=== PATIENT | female | born 1965 | race Caucasian/White ===

== ENCOUNTER → 2019-09-27 | Outpatient (CLI) | payer BC | LOC: M LAB 07:40 | PROVIDERS: ATTEND Nurse Practitioner Women's Health | DX: R73.03 Prediabetes (principal) ==

== ENCOUNTER → 2020-03-31 | Outpatient (REF) | payer BC | LOC: M LAB REF 18:01 | PROVIDERS: ATTEND Dermatology | DX: D21.0 Benign neoplasm of connective and other soft tissue of head, face and neck (principal) ==

== ENCOUNTER → 2020-04-10 | Outpatient (REF) | payer BC ==
[2020-04-10 13:45] LABS: HEMATOCRIT 44.3 % (36.0-47.0); HEMOGLOBIN 14.1 g/dl (12.0-15.5); MEAN CORPUSCULAR HEMOGLOBIN 29.7 pg (27.0-33.0); MEAN CORPUSCULAR HGB CONC 31.8 g/dl (32.0-36.5); MEAN CORPUSCULAR VOLUME 93.3 fl (80.0-96.0); PLATELET COUNT, AUTOMATED 361 10^3/uL (150-450); RED BLOOD COUNT 4.75 10^6/uL (4.00-5.40); WHITE BLOOD COUNT 6.8 10^3/uL (4.0-10.0)
[2020-04-10 15:14] LABS: ALBUMIN 3.9 GM/DL (3.2-5.2); ALT/SGPT 36 U/L (12-78); BILIRUBIN,TOTAL 0.3 MG/DL (0.2-1.0); BLOOD UREA NITROGEN 15 MG/DL (7-18); CALCIUM LEVEL 10.2 MG/DL (8.5-10.1); CARBON DIOXIDE LEVEL 27 MEQ/L (21-32); CHLORIDE LEVEL 107 MEQ/L (98-107); CHOLESTEROL LEVEL 173 MG/DL (<200); CHOLESTEROL RISK RATIO 4.325 (<5); CREATININE FOR GFR 0.97 MG/DL (0.55-1.30); GLOMERULAR FILTRATION RATE > 60.0 (>51); GLUCOSE, FASTING 99 MG/DL (70-100); HDL CHOLESTEROL 40 MG/DL (>40); LDL CHOLESTEROL 108 MG/DL (<100); NON-HDL-C 133 MG/DL; POTASSIUM SERUM 4.6 MEQ/L (3.5-5.1); SODIUM LEVEL 139 MEQ/L (136-145); TOTAL 25(OH) VITAMIN D 20.9 NG/ML (30.0-100.0); TOTAL PROTEIN 7.5 GM/DL (6.4-8.2); TRIGLYCERIDES LEVEL 123 MG/DL (<150)
[2020-04-10 18:36] LABS: HEMOGLOBIN A1c 5.6 %
== END ==
LOC: M SFHCPLAZ 10:40
PROVIDERS: ATTEND Nurse Practitioner Adult Health
DX: Z00.00 Encounter for general adult medical examination without abnormal findings (principal); Z13.220 Encounter for screening for lipoid disorders; Z68.41 Body mass index [BMI] 40.0-44.9, adult; E55.9 Vitamin D deficiency, unspecified

== ENCOUNTER → 2020-05-18 | Outpatient (CLI) | payer BC ==
[~2020-05-18] MED LIST: GASTROGRAFIN SOLUTION 30ML (Q9963) ONE; ISOVUE-370 76% 100ML VIAL ONE
--- NOTE | 2020-06-29 09:17 | REP ---
CT OF THE ABDOMEN AND PELVIS WITH IV AND ORAL CONTRAST: HISTORY: Malignant neoplasm of the endometrium. COMPARISON: None. FINDINGS: Preliminary supervisor boatbuilders wood view is noncontributory. The liver is normal in size, homogeneous in texture. No splenic abnormality is observed. Normal adrenal glands are seen. No abnormality is noted in the pancreas or the gallbladder. No retroperitoneal mass or adenopathy is seen. The kidneys enhance symmetrically and are morphologically intact. Vascular calcification is noted in a normal caliber aorta. A normal appendix is seen in the right lower quadrant. No iliac or pelvic mass or adenopathy is seen. There is an IUD noted in place in the uterus. The uterus tips to the right. No adnexal mass is seen. The urinary bladder is intact. No abdominal wall defect is seen. The small and large bowel loops are unremarkable. Bone window settings show no bony destructive lesion. IMPRESSION: No evidence of mass or adenopathy. IUD noted in place in the uterus. MTDD
--- NOTE | 2020-06-29 09:18 | REP ---
CT OF THE CHEST WITH IV CONTRAST: HISTORY: Malignant neoplasm of the endometrium. COMPARISON: None. CONTRAST DOSE: 100 ml of intravenous Isovue 370 FINDINGS: Preliminary digital football scout view of the chest is unremarkable. The lungs are symmetrically aerated and free of infiltrate or pulmonary nodule. No mass lesion is seen. No pleural or pericardial effusion is observed. No hilar or mediastinal adenopathy is seen. No pulmonary arterial or mediastinal vascular abnormality is observed. The thyroid lobes appear normal and symmetric. No axillary adenopathy is seen. Normal adrenal glands are seen bilaterally. The visualized upper abdominal structures are unremarkable. On bone window settings, no bony destructive lesion is seen. IMPRESSION: No active cardiopulmonary disease. MTDD
== END ==
LOC: M RAD 14:28
PROVIDERS: ATTEND Nurse Practitioner Women's Health
DX: C54.1 Malignant neoplasm of endometrium (principal)
CPT/HCPCS: 71260; 74177; Q9963; Q9967

== ENCOUNTER → 2020-07-17 | Outpatient (REF) | payer BC ==
[2020-07-17 16:11] LABS: ALBUMIN 3.6 GM/DL (3.2-5.2); ALT/SGPT 25 U/L (12-78); BILIRUBIN,TOTAL 0.5 MG/DL (0.2-1.0); BLOOD UREA NITROGEN 14 MG/DL (7-18); CALCIUM LEVEL 9.4 MG/DL (8.5-10.1); CARBON DIOXIDE LEVEL 30 MEQ/L (21-32); CHLORIDE LEVEL 106 MEQ/L (98-107); CREATININE FOR GFR 0.92 MG/DL (0.55-1.30); GLOMERULAR FILTRATION RATE > 60.0 (>51); GLUCOSE, FASTING 81 MG/DL (70-100); PHOSPHORUS LEVEL 3.2 MG/DL (2.5-4.9); POTASSIUM SERUM 4.3 MEQ/L (3.5-5.1); SODIUM LEVEL 142 MEQ/L (136-145); TOTAL PROTEIN 7.3 GM/DL (6.4-8.2)
== END ==
LOC: M SFHCPLAZ 14:01
PROVIDERS: ATTEND Nurse Practitioner Adult Health
DX: E83.52 Hypercalcemia (principal)

== ENCOUNTER → 2020-08-18 | Outpatient (REF) | payer BC | LOC: M LAB REF 17:09 | PROVIDERS: ATTEND Dermatology | DX: L72.0 Epidermal cyst (principal) ==

== ENCOUNTER → 2020-08-21 | Outpatient (CLI) | payer BC ==
--- NOTE | 2020-08-22 05:18 | REP ---
INDICATION: ESSENTIAL HTN COMPARISON: None TECHNIQUE: Real time díaz scale ultrasound examination using curved array transducer followed by color Doppler evaluation of the renal vasculature. FINDINGS: The bilateral kidneys demonstrate normal contour, size, echogenicity, and reniform shape without hydronephrosis or obvious abnormality. Right kidney measures 10.4 x 5.3 x 4.8 cm. Left kidney measures 11.3 x 5.0 x 4.6 cm. Bladder is under distended. Incidental gallstones noted. Color Doppler evaluation demonstrates normal renal arterial wave patterns. Peak aortic velocity: 75.5 centimeters/second RIGHT KIDNEY Renal arterial velocity: 127.7 centimeters/second Renal-aortic ratio: 1.7 Intrarenal resistive indices: 0.58-0.76 Intrarenal acceleration times: 0.04-0.045 LEFT KIDNEY Renal arterial velocity: 151.5 centimeters/second Renal-aortic ratio: 2.0 Intrarenal resistive indices: 0.55-0.72 Intrarenal acceleration times: 0.04-0.05 IMPRESSION: 1. Kidneys appear normal. 2. Doppler interrogation without sonographic evidence for renal arterial stenosis. 3. Gallstones. <Electronically signed by Josh Vergara > 08/22/20 0514
== END ==
LOC: M RAD 09:43
PROVIDERS: ATTEND Nurse Practitioner Adult Health
DX: I10 Essential (primary) hypertension (principal); K80.20 Calculus of gallbladder without cholecystitis without obstruction

== ENCOUNTER → 2020-10-18 | Outpatient (CLI) | payer BC ==
[~2020-10-18] MED LIST changes: +COLLAGEN PO; +D400400C PO; -GASTROGRAFIN SOLUTION 30ML (Q9963) ONE; -ISOVUE-370 76% 100ML VIAL ONE; +VALS40TA9 PO
== END ==
LOC: M LABSMTC 09:45
PROVIDERS: ATTEND Anesthesiology
DX: Z01.812 Encounter for preprocedural laboratory examination (principal); Z20.828 Contact with and (suspected) exposure to other viral communicable diseases

== ENCOUNTER 2020-10-23 07:37 | Day surgery (SDC) | payer BC ==
[~2020-10-23] VITALS: Ht 162.6 cm; Wt 107.0 kg
[~2020-10-23 07:37] MED LIST changes: +NS 1,000 ML IV ONE
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
--- OUTSIDE RECORDS SUMMARY | 2020-10-23 07:42 | CCD ---
Author Author [facility] Organization [facility] Address Unknown Phone Unavailable Care Team Providers Care Spot Facer Name Role Phone Myron Wynn APPLICATIONS ENGINEERING MANAGER, CNM Unavailable Unavailable WynnMyron philip APPLICATIONS ENGINEERING MANAGER, CNM Unavailable Unavailable Myron Wynn APPLICATIONS ENGINEERING MANAGER, CNM Unavailable Unavailable WynnMyron philip APPLICATIONS ENGINEERING MANAGER, CNM Unavailable Unavailable Myron Wynn APPLICATIONS ENGINEERING MANAGER, CNM Unavailable Unavailable WynnMyron philip APPLICATIONS ENGINEERING MANAGER, CNM Unavailable Unavailable Myron Wynn APPLICATIONS ENGINEERING MANAGER, CNM Unavailable Unavailable Myron Wynn APPLICATIONS ENGINEERING MANAGER, CNM Unavailable Unavailable WynnMyron philip APPLICATIONS ENGINEERING MANAGER, CNM Unavailable Unavailable Myron Wynn APPLICATIONS ENGINEERING MANAGER, CNM Unavailable Unavailable Myron Wynn APPLICATIONS ENGINEERING MANAGER, CNM Unavailable Unavailable Myron Wynn APPLICATIONS ENGINEERING MANAGER, CNM Unavailable Unavailable Myron Wynn APPLICATIONS ENGINEERING MANAGER, CNM Unavailable Unavailable Myron Wynn APPLICATIONS ENGINEERING MANAGER, CNM Unavailable Unavailable Myron Wynn APPLICATIONS ENGINEERING MANAGER, CNM Unavailable Unavailable Myron Wynn APPLICATIONS ENGINEERING MANAGER, CNM Unavailable Unavailable Myron Wynn APPLICATIONS ENGINEERING MANAGER, CNM Unavailable Unavailable Myron Wynn APPLICATIONS ENGINEERING MANAGER, CNM Unavailable Unavailable Myron Wynn APPLICATIONS ENGINEERING MANAGER, CNM Unavailable Unavailable Myron Wynn APPLICATIONS ENGINEERING MANAGER, CNM Unavailable Unavailable Myron Wynn APPLICATIONS ENGINEERING MANAGER, CNM Unavailable Unavailable Myron Wynn APPLICATIONS ENGINEERING MANAGER, CNM Unavailable Unavailable Wynn, M Angela APPLICATIONS ENGINEERING MANAGER, CNM Unavailable Unavailable Wynn, M Angela APPLICATIONS ENGINEERING MANAGER, CNM Unavailable Unavailable Wynn, M Angela APPLICATIONS ENGINEERING MANAGER, CNM Unavailable Unavailable Wynn, M Angela APPLICATIONS ENGINEERING MANAGER, CNM Unavailable Unavailable Wynn, M Angela APPLICATIONS ENGINEERING MANAGER, CNM Unavailable Unavailable Wynn, M Angela APPLICATIONS ENGINEERING MANAGER, CNM Unavailable Unavailable Wynn, M Angela APPLICATIONS ENGINEERING MANAGER, CNM Unavailable Unavailable Wynn, M Angela APPLICATIONS ENGINEERING MANAGER, CNM Unavailable Unavailable Wynn, M Angela APPLICATIONS ENGINEERING MANAGER, CNM Unavailable Unavailable Wynn, M Angela APPLICATIONS ENGINEERING MANAGER, CNM Unavailable Unavailable Wynn, M Angela APPLICATIONS ENGINEERING MANAGER, CNM Unavailable Unavailable Re-disclosure Warning The records that you are about to access may contain information from federally-assisted alcohol or drug abuse programs. If such information is present, then the following federally mandated warning applies: This information has been disclosed to you from records protected by federal confidentiality rules (42 CFR part 2). The federal rules prohibit you from making any further disclosure of this information unless further disclosure is expressly permitted by the written consent of the person to whom it pertains or as otherwise permitted by 42 CFR part 2. A general authorization for the release of medical or other information is NOT sufficient for this purpose. The Federal rules restrict any use of the information to criminally investigate or prosecute any alcohol or drug abuse patient.The records that you are about to access may contain highly sensitive health information, the redisclosure of which is protected by Article 27-F of the [facility] Public Health law. If you continue you may have access to information: Regarding HIV / AIDS; Provided by facilities licensed or operated by the [facility] Office of Mental Health; or Provided by the [facility] Office for People With Developmental Disabilities. If such information is present, then the following [facility] mandated warning applies: This information has been disclosed to you from confidential records which are protected by state law. State law prohibits you from making any further disclosure of this information without the specific written consent of the person to whom it pertains, or as otherwise permitted by law. Any unauthorized further disclosure in violation of state law may result in a fine or penitentiary sentence or both. A general authorization for the release of medical or other information is NOT sufficient authorization for further disc losure. Family History Family Member Name Family Member Gender Family Member Status Date o f Status Description Data Source(s) Unknown Unknown Encounters Encounter Providers Location Date Indications Data Source(s ) Unknown [address] [facility] [place] [address] 09/19/2020 12:00:00 AM EST eCW1 ([facility]) Outpatient [address] [facility] [place] [address] 08/24/2020 12:00:00 AM EST eCW1 ([facility]) Outpatient [address] [facility] [place] [address] 08/18/2020 12:00:00 AM EST eCW1 ([facility]) Outpatient [address] [facility] [place] [address] 08/07/2020 12:00:00 AM EST eCW1 ([facility]) Unknown [address] [facility] [place] [address] 08/07/2020 12:00:00 AM EST eCW1 ([facility]) Outpatient [address] [facility] [place] [address] 07/17/2020 12:00:00 AM EDT eCW1 ([facility]) Outpatient Referrer: Angela Wynn NP, CNM 09/21/2019 07:32 :00 AM EST [facility] Outpatient Referrer: Angela Wynn NP, CNM 09/21/2019 07:31 :00 AM EST [facility] Outpatient Referrer: Angela Wynn NP, CNM 09/21/2019 07:31 :00 AM EST [facility] Outpatient Referrer: Angela Wynn NP, CNM 09/21/2019 07:26 :00 AM EST [facility] Outpatient Referrer: Angela Wynn NP, CNM 09/14/2019 10:44 :00 AM EST [facility] Outpatient 09/14/2019 10:39:00 AM EST [facility] Outpatient 09/14/2019 10:39:00 AM EST [facility] Immunizations Vaccine Date Status Description Data Source(s) influenza, recombinant, quadrIvalent,injectable, prese rvative free 07/17/2020 01:38:00 PM EDT completed eCW1 ([facility]) influenza, recombinant, quadrIvalent,injectable, prese rvative free 07/17/2020 01:38:00 PM EDT completed eCW1 ([facility]) influenza, recombinant, quadrIvalent,injectable, prese rvative free 07/17/2020 01:38:00 PM EDT completed eCW1 ([facility]) influenza, recombinant, quadrIvalent,injectable, prese rvative free 07/17/2020 01:38:00 PM EDT completed eCW1 ([facility]) influenza, recombinant, quadrIvalent,injectable, prese rvative free 07/17/2020 01:38:00 PM EDT completed eCW1 ([facility]) influenza, recombinant, quadrIvalent,injectable, prese rvative free 07/17/2020 01:38:00 PM EDT completed eCW1 ([facility]) Medications Medication Brand Name Start Date Product Form Dose Route Admi nistrative Instructions Pharmacy Instructions Status Indications Reaction Description Data Source(s) Naltrexone hydrochloride 50 MG Oral Tablet NALTREXONE HCL 08/29/2020 12:00:00 AM EST tablet 90 TAKE ONE TABLET BY MOUTH DANGELO TAKE ONE TABLET BY MOUTH EVERY DAY SOLD: 08/29/2020 [facility] 24 HR Bupropion Hydrochloride 150 MG Extended Release Oral T ablet BUPROPION HCL 08/29/2020 12:00:00 AM EST tablet extended release 24 hr 90 TAKE ONE TABLET BY MOUTH EVERY MORNING TAKE ONE TABLET BY MOUTH EVERY MORNING SOLD: 08/29/2020 [facility] Naltrexone hydrochloride 50 MG Oral Tablet Naltrexone HCl 50 MG Naltrexone HCl 50 MG 08/28/2020 12:00:00 AM EST 1.0 {tablet} activ e Naltrexone HCl 50 MG eCW1 ([facility]) 24 HR Bupropion Hydrochloride 150 MG Ext ended Release Oral Tablet [Wellbutrin] Wellbutrin XL 150 MG Wellbutrin XL 150 MG 08/28/2020 12:00:00 AM EST 1.0 {tablet_in_the_morning} active Wellbutr in XL 150 MG eCW1 ([facility]) 24 HR Bupropion Hydrochloride 150 MG Ext ended Release Oral Tablet [Wellbutrin] Wellbutrin XL 150 MG Wellbutrin XL 150 MG 08/28/2020 12:00:00 AM EST 1.0 {tablet_in_the_morning} active Wellbutr in XL 150 MG eCW1 ([facility]) Naltrexone hydrochloride 50 MG Oral Tablet Naltrexone HCl 50 MG Naltrexone HCl 50 MG 08/28/2020 12:00:00 AM EST 1.0 {tablet} activ e Naltrexone HCl 50 MG eCW1 ([facility]) valsartan 40 MG Oral Tablet Valsartan 40 MG Valsartan 40 MG 08/07/2020 12:00:00 AM EST 1.0 {tablet} active Valsartan 4 0 MG eCW1 ([facility]) valsartan 40 MG Oral Tablet Valsartan 40 MG Valsartan 40 MG 08/07/2020 12:00:00 AM EST 1.0 {tablet} active Valsartan 4 0 MG eCW1 ([facility]) valsartan 40 MG Oral Tablet Valsartan 40 MG Valsartan 40 MG 08/07/2020 12:00:00 AM EST 1.0 {tablet} active Valsartan 4 0 MG eCW1 ([facility]) Bisacodyl 5 MG Delayed Release Oral Tablet [Dulcolax] Dulcol ax 07/10/2020 12:00:00 AM EDT ORAL active M EDENT ([facility], ) 17.5-3.13-1.6 gram 07/10/2020 12:00:00 AM EDT recon soln 354 TAKE DIRECTED TAKE DIRECTED SOLD: 07/12/2020 [facility] Suprep Bowel Prep Kit Suprep Bowel Prep Kit 07/10/2020 12:00:00 AM EDT active MEDENT ([facility], ) Insurance Providers Payer name Policy type / Coverage type Policy ID Covered alliance party ID Covered alliance party's relationship to smith Policy Smith Plan Information [employer] [place]/307 [id number] SP [id number] [employer] BCBS B [id number] S [id number] [place] [place] P[place] 302/[id number] [employer] BCBS B [id number] P [id number] BCBS of [facility] Other 0 Family Depend ent Latrell Cough 0 BCBS of [facility] Other 0 Family Depend ent Latrell Cough 0 BCBS of [facility] Other 0 Family Depend ent Latrell Cough 0 BS/PP0/Prefix W/#'S&LTR Commercial Family Dependen t Problems, Conditions, and Diagnoses Code Display Name Description Problem Type Effective Dates Data Source(s) I10 [id number] Essential hypertension Problem 08/07/2020 12 :00:00 AM EST eCW1 ([facility]) Z68.38 [id number] BMI 38.0-38.9,adult Problem 07/17/2020 12:00 :00 AM EDT eCW1 ([facility]) Z68.41 [id number] Body mass index (BMI) of 40.1 to 44.9 in adult Problem 04/10/2020 12:00:00 AM EDT eCW1 ([facility]) C55 [id number] Malignant neoplasm of uterus, unspecified site Problem 04/10/2020 12:00:00 AM EDT eCW1 ([facility]) I10 [id number] Elevated blood press ure reading in office with white coat syndrome, with diagnosis of hypertension Problem 04/10/2020 12:00:00 AM EDT e CW1 ([facility]) E83.52 04736589 Serum calcium elevated Problem 04/10/2020 12 :00:00 AM EDT eCW1 ([facility]) E55.9 [id number] Vitamin D deficiency, unspecified Problem 04/10/2020 12:00:00 AM EDT eCW1 ([facility]) Surgeries/Procedures Procedure Description Date Indications Data Source(s) Suture Removal 08/24/2020 12:00:00 AM EST eCW1 ([facility]) Immunization: Flublok Quadrivalent (18 years & older) 0.5mL IM (Influenza) 07/17/2020 12:00:00 AM EDT eCW1 ([facility]) Results ID Date Data Source [id number] 10/18/2020 10:00:00 AM EST [facility] Name Value Range Interpretation Code Description Data Clarissa rce(s) Supporting Document(s) SARS coronavirus 2 RNA Not Detected [facility] [place] This lab was ordered by [facility] and reported by [facility]. ID Date Data Source [id number] 10/09/2020 12:00:00 AM EST [facility] Diana Biswas Cnm Patient Name: ELIGHANN HUITRON[address] [facility] Date of : 1965[place] [address] Date of Exam: 10/09/2020#: Fax: [phone] EXAM: MAMMO SCREENING WITH CADCLINICAL INFORMATION: Screening.Based on the personal and family history information your patient suppliedat the time of imaging, her lifetime risk of breast cancer estimated by theTyrer-Cuzick model is 6.6%. Given that this patient has less than 20% TCrisk score, no further medical management is currently recommended at thistime.Your patient's personal and/or family history of cancer submitted at thetime of imaging is suggestive of a hereditary cancer syndrome. She meetsthe criteria for genetic testing established by [facility] and [employer] guidelines. She should pursue arisk assessment with a hereditary cancer specialist which may includetesting based on these criteria. The benefits and limitations of genetictesting would be discussed, including potential changes to medicalmanagement based on the results. [facility].Digital screening (2D) mammography was performed bilaterally in the CC andMLO projections. Additionally, breast tomosynthesis (3D mammography) wasperformed bilaterally in the CC and MLO projections. Today's exam wascompared to the prior exam(s).By history, the patient has no complaints of a palpable breast abnormalityor other significant breast complaints.The patient states last clinical breast exam was in September of 2020.The breasts are unchanged in size and shape. There are no cheyanne-soft tissuedensities or sp iculated masses. There is no internal architecturaldistortion. There are no suspicious cheyanne-calcific clusters. Skinthickening or nipple retraction is not present. Stable benigncalcifications are again seen bilaterally.The Volpara volumetric breast density category is B, there are scatteredareas of fibroglandular density.IMPRESSION:BI-RADS Category 2 - Benign Finding(s). Stable mammogram. There is noevidence of malignant alteration of the breasts. Followup examinationrecommended in one year.This mammogram was read with the assistance of [employer], an FDAapproved computer aided detection system for mammography.Negative x-ray reports should not delay surgical consultation if a dominantor clinically suspicious mass is present.Not all breast cancers can be identified by mammography. Therefore, werecommend that you continue to perform regular breast self-examination andphysical examination and then promptly contact your physician of anyconcerns or changes.Adenosis and dense breasts may obscure an underlying neoplasm.ANUSHA Felipe/Yaneth you for referring LEIGHANN HUITRON to our office. Electronically Signed - NIKKY MORRIS DO 10/10/20 13:21 Name Value Range Interpretation Code Description Data Clarissa rce(s) Supporting Document(s) ID Date Data Source [id number] 05/23/2020 04:32:00 PM EDT [facility] Name Value Range Interpretation Code Description Data Clarissa rce(s) Supporting Document(s) SARS coronavirus 2 RNA panel N [facility] This lab was ordered by [facility] and reported by [facility]. ID Date Data Source [id number] 09/21/2019 12:00:00 AM EST [facility] Angela [facility] Patient Name: LEIGHANN MILLER [address] [facility] Date of : 1965[place] [address] Date of Exam: 09/21/2019#: Fax: [phone] EXAM: MAMMO SCREENING WITH CADCLINICAL INFORMATION: Screening.Based on the personal and family history information your patient suppliedat the time of imaging, her lifetime risk of breast cancer estimated by theTyrer-Cuzick model is 7.6%. Given that this patient has less than 20% TCrisk score, no further medical management is currently recommended at thistime.Although the patient is 54-years of age she states that she has never had amammogram and today is the initial screening exam.Digital screening (2D) mammography was performed bilaterally. Additionally,breast tomosynthesis (3D) mammography was performed bilaterally in the CCand MLO projections.Today's examination is the initial screening examination.By history, the patient has no complaints of a palpable breast abnormalityor other significant breast complaints.The patient states last clinical breast exam was 09/2019.The breasts are symmetric in size and shape. There are no masses. Thereis no internal architectural distortion. There are no suspiciousmicrocalcific clusters. Skin thickening or nipple retraction is notpresent.The Volpara volumetric breast density category is A, the breasts are almostentirely fatty.IMPRESSION:BI-RADS Category 2 - Benign Finding(s). There is no evidence of malignantalteration of the breasts. Followup examination recommended in one year.This mammogram was read with the assistance of [employer], an FDAapproved computer aided detection system for mamm ography.Negative x-ray reports should not delay surgical consultation if a dominantor clinically suspicious mass is present.Not all breast cancers can be identified by mammography. Therefore, werecommend that you continue to perform regular breast self-examination andphysical examination and then promptly contact your physician of anyconcerns or changes.Adenosis and dense breasts may obscure an underlying neoplasm.ANUSHA Felipe/Devik you for referring LEIGHANN MILLER to our office. Electronically Signed - NIKKY MORRIS DO 09/21/19 16:32 Name Value Range Interpretation Code Description Data Clarissa rce(s) Supporting Document(s) ID Date Data Source [id number] 09/21/2019 12:00:00 AM EST [facility] Angela Wynn Cn Patient Name: LEIGHANN MILLER [address] [facility] Date of : 1965[place] [address] Date of Exam: 09/21/2019PH#: Fax: [phone] EXAM: US PELVIC COMPLETECLINICAL INFORMATION: Post menopausal bleeding.Transvesical and transvaginal imaging was obtained.There are no prior pelvic ultrasounds for comparison.The uterus measures 8.7 x 4.1 x 5.9 cm. The parenchymal echo pattern iswithin normal limits. The endometrial echocomplex is abnormally thickenedand heterogeneous measuring 2 cm in its greatest thickness.Neither ovary was visualized transvesically or transvaginally.The urinary bladder measures 4 x 5 x 7 cm.IMPRESSION:Abnormally thickened heterogeneous endometrial echocomplex as describedabove.Accredited by the [employer] in GynecologicalUltrasound.ANUSHA Felipe/antoinettecTaruna maloney for referring LEIGHANN MILLER to our office. Electronically Signed - NIKKY MORRIS DO 09/21/19 16:35 Name Value Range Interpretation Code Description Data Clarissa rce(s) Supporting Document(s) ID Date Data Source [id number] 09/21/2019 12:00:00 AM EST [facility] Name: LEIGHANN MILLER [address] [facility] Date of : 1965[place], [place] [address] Date of Exam: 09/21/2019#: Fax: [phone] EXAM: US PELVIC COMPLETECLINICAL INFORMATION: Post menopausal bleeding.Transvesical and transvaginal imaging was obtained.There are no prior pelvic ultrasounds for comparison.The uterus measures 8.7 x 4.1 x 5.9 cm. The parenchymal echo pattern iswithin normal limits. The endometrial echocomplex is abnormally thickenedand heterogeneous measuring 2 cm in its greatest thickness.Neither ovary was visualized transvesically or transvaginally.The urinary bladder measures 4 x 5 x 7 cm.IMPRESSION:Abnormally thickened heterogeneous endometrial echocomplex as describedabove.Accredited by the [employer] in GynecologicalUltrasound.ANUSHA Felipe/Yaneth you for referring LEIGHANN MILLER to our office. Electronically Signed - NIKKY MORRIS DO 09/21/19 16:35 Name Value Range Interpretation Code Description Data Clarissa rce(s) Supporting Document(s) Procedure Social History Code Duration Value Status Description Data Source(s ) Smoking 08/28/2020 12:00:00 AM EST Former Smoker completed Former Smoker eCW1 ([facility]) Smoking 08/28/2020 12:00:00 AM EST Former Smoker completed Former Smoker eCW1 ([facility]) Smoking 08/25/2020 12:00:00 AM EST Former Smoker completed Former Smoker eCW1 ([facility]) Smoking 08/07/2020 12:00:00 AM EST Former Smoker completed Former Smoker eCW1 ([facility]) Smoking 08/07/2020 12:00:00 AM EST Former Smoker completed Former Smoker eCW1 ([facility]) Smoking 07/17/2020 12:00:00 AM EDT Former Smoker completed Former Smoker eCW1 ([facility]) Vital Signs ID Date Data Source UNK Name Value Range Interpretation Code Description Data Source(s) Body mass index (BMI) [Ratio] 38.41 kg/m2 38.41 kg/m2 W1 ([facility]) Body height 66 [in_i] 66 [in_i] [facility]CW[facility] Body weight 238 [lb_av] 238 [lb_av] eCW1 ([facility]) Diastolic blood pressure 96 mm[Hg] 96 mm[Hg] eCW1 ([facility]) Systolic blood pressure 160 mm[Hg] 160 mm[Hg] e CW1 ([facility]) Body temperature 98 [degF] 98 [degF] eCW1 ([facility]) Respiratory rate 18 /min 18 /min eCW1 ([facility]) Heart rate 90 /min 90 /min eCW1 ([facility]) Body mass index (BMI) [Ratio] 38.57 kg/m2 38.57 kg/m2 eCW1 ([facility]) Body height 66 [in_i] 66 [in_i] eCW1 ([facility]) Body weight 239 [lb_av] 239 [lb_av] eCW1 ([facility]) Diastolic blood pressure 88 mm[Hg] 88 mm[Hg] eCW1 ([facility]) Systolic blood pressure 150 mm[Hg] 150 mm[Hg] e CW1 ([facility]) Body temperature 98.2 [degF] 98.2 [degF] eCW1 ( [facility]) Respiratory rate 18 /min 18 /min eCW1 ([facility]) Heart rate 90 /min 90 /min eCW1 ([facility]) Body mass index (BMI) [Ratio] 38.57 kg/m2 38.57 kg/m2 eCW1 ([facility]) Body height 66 [in_i] 66 [in_i] eCW1 ([facility] Body weight 239 [lb_av] 239 [lb_av] eCW1 ([facility]) Body weight 108.410 kg 108.410 kg MEDENT ([facility], ) [place] body weight 125 [lb_av] 125 [lb_av] MEDEN T ([facility], ) Body mass index (BMI) [Ratio] 39.8 kg/m2 39.8 k g/m2 [facility] ([facility]) Body weight 239.00 [lb_av] 239.00 [lb_av] MEDEN T ([facility], ) Body height 65 [in_i] 65 [in_i] MEDENT ([facility]) 5'5" Diastolic blood pressure 84 mm[Hg] 84 mm[Hg] [facility] ([facility]) Systolic blood pressure 122 mm[Hg] 122 mm[Hg] M EDENT ([facility], ) Patient Treatment Plan of Care Planned Activity Planned Date Details Description Data Source (s) 24 HR Bupropion Hydrochloride 150 MG Extended Release Oral Tablet [Wellbutrin] 08/28/2020 12:00:00 AM EST eCW1 ([facility] Naltrexone hydrochloride 50 MG Oral Tablet 08/28/2020 12:00:[address] eCW1 ([facility]) 24 HR Bupropion Hydrochloride 150 MG Extended Release Oral Tablet [Wellbutrin] 08/28/2020 12:00:00 AM EST eCW1 ([facility]) Naltrexone hydrochloride 50 MG Oral Tablet 08/28/2020 12:00:[address] eCW1 ([facility]) valsartan 40 MG Oral Tablet 08/07/2020 12:00:00 AM EST eCW1 ([facility]) valsartan 40 MG Oral Tablet 08/07/2020 12:00:00 AM EST eCW1 ([facility])
[2020-10-23] MEDS ORDERED: LIDOCAINE 2% 100MG/5ML SDV (FOR ANES.) As Ordered ONE (07:55)
[2020-10-23] MEDS ORDERED: propofoL 200 MG/20 ML VIAL As Ordered ONE ×2 (07:55→09:38)
--- NOTE | 2020-10-23 10:02 | ROOR ---
Patient Name: Harmony Cough Procedure Date: 10/23/2020 9:12 AM Date of : 1965 Age: 55 Room: [facility] Gender: Female Note Status: Finalized Procedure: Colonoscopy Indications: Screening for colorectal malignant neoplasm Providers: Dmitriy Roper MD Referring MD: Alma Delia Sesay NP Requesting Provider: Medicines: Monitored Anesthesia Care Complications: No immediate complications. Procedure: Pre-Anesthesia Assessment: - Prior to the procedure, a History and Physical was performed, and patient medications and allergies were reviewed. The patient is competent. The risks and benefits of the procedure and the sedation options and risks were discussed with the patient. All questions were answered and informed consent was obtained. Patient identification and proposed procedure were verified by the physician, the nurse and the anesthesiologist in the procedure room. Mental Status Examination: alert and oriented. Airway Examination: normal oropharyngeal airway and neck mobility. Respiratory Examination: clear to auscultation. CV Examination: normal. Prophylactic Antibiotics: The patient does not require prophylactic antibiotics. Prior Anticoagulants: The patient has taken no previous anticoagulant or antiplatelet agents. ASA Grade Assessment: II - A patient with mild systemic disease. After reviewing the risks and benefits, the patient was deemed in satisfactory condition to undergo the procedure. The anesthesia plan was to use monitored anesthesia care (MAC). Immediately prior to administration of medications, the patient was re-assessed for adequacy to receive sedatives. The heart rate, respiratory rate, oxygen saturations, blood pressure, adequacy of pulmonary ventilation, and response to care were monitored throughout the procedure. The physical status of the patient was re-assessed after the procedure. The Colonoscope was introduced through the anus and advanced to the terminal ileum, with identification of the appendiceal orifice and IC valve. The colonoscopy was performed without difficulty. The patient tolerated the procedure well. The quality of the bowel preparation was good. The terminal ileum, ileocecal valve, appendiceal orifice, and rectum were photographed. Scope insertion time was 3 minutes. Scope withdrawal time was 9 minutes. The total duration of the procedure was 12 minutes. Findings: The perianal and digital rectal examinations were normal. The terminal ileum appeared normal. A 3 mm polyp was found in the recto-sigmoid colon. The polyp was sessile. The polyp was removed with a jumbo cold forceps. Resection and retrieval were complete. Verification of patient identification for the specimen was done by the physician and nurse using the patient's name, date and medical record number. Estimated blood loss was minimal. Multiple small and large-mouthed diverticula were found in the sigmoid colon. There was no evidence of diverticular bleeding. Non-bleeding external and internal hemorrhoids were found during retroflexion. The hemorrhoids were medium-sized. Impression: - The examined portion of the ileum was normal. - One 3 mm polyp at the recto-sigmoid colon, removed with a jumbo cold forceps. Resected and retrieved. - Moderate diverticulosis in the sigmoid colon. There was no evidence of diverticular bleeding. - Non-bleeding external and internal hemorrhoids. Recommendation: - Patient has a contact number available for emergencies. The signs and symptoms of potential delayed complications were discussed with the patient. Return to normal activities tomorrow. Written discharge instructions were provided to the patient. - High fiber diet. - Continue present medications. - Use fiber, for example Citrucel, Fibercon, Konsyl or Metamucil. - Await pathology results. - Repeat colonoscopy in 5-10 years for surveillance based on pathology results. - Telephone GI clinic for pathology results in 2 weeks. - Return to primary care physician. Procedure Code(s): --- Professional --- 25985, Colonoscopy, flexible; with biopsy, single or multiple Diagnosis Code(s): --- Professional --- Z12.11, Encounter for screening for malignant neoplasm of colon K64.8, Other hemorrhoids K63.5, Polyp of colon K57.30, Diverticulosis of large intestine without perforation or abscess without bleeding CPT copyright 2019 [employer]. All rights reserved. The codes documented in this report are preliminary and upon surgical physician assistant review may be revised to meet current compliance requirements. Dmitriy Roper MD Dmitriy Roper MD 10/23/2020 10:01:45 AM Electronically signed by Dmitriy Roper MD Number of Addenda: 0 Note Initiated On: 10/23/2020 9:12 AM Estimated Blood Loss: Estimated blood loss was minimal.
[2020-10-23 10:10] VITALS: BP 120/67
== END 2020-10-23 10:13 | disposition home or self-care (01) ==
LOC: M OPP 07:37
PROVIDERS: ATTEND Internal Medicine Gastroenterology
DX: Z12.11 Encounter for screening for malignant neoplasm of colon (principal); K65.3 Choleperitonitis; K64.8 Other hemorrhoids; K57.30 Diverticulosis of large intestine without perforation or abscess without bleeding

== ENCOUNTER → 2021-05-25 | Outpatient (REF) | payer BC ==
[~2021-05-25] MED LIST changes: -NS 1,000 ML IV ONE
== END ==
LOC: M LAB REF 14:48
PROVIDERS: ATTEND Ophthalmology
DX: H02.834 Dermatochalasis of left upper eyelid (principal); H02.831 Dermatochalasis of right upper eyelid